=== PATIENT | female | born 1940 | race Caucasian/White ===

== ENCOUNTER 2020-07-21 13:36 | Outpatient (CLI) | payer MEDICARE, SELFPAY ==
--- NOTE | ~2020-07-21 | XR_ITS ---
EXAMINATION: XR lg joint inject/asp w image DATE: 07/21/2020 14:32 INDICATION: Right hip osteoarthritis presenting with right hip pain TECHNIQUE: A time-out was performed to verify the patient's name, date of , and procedure to b e performed. The procedure including the risks, benefits, and alternatives was discussed with the pat ient. Risks discussed included bleeding and infection. The patient understood the risks and agreed to proceed. The skin overlying the right hip joint was prepped and draped in usual sterile fashion. A nesthetic was administered with 1% lidocaine subcutaneously. A 22 G needle was advanced under fluoro scopic guidance into the joint. Injection of 0.6 mL of Omnipaque 240 confirmed intra-articular posit ion of the needle. Subsequently, injectate consisting of 4.5 mL of a 2:1 mixture of 0.25% Sensorcain e: 10 mg/mL Kenalog for a total dosage of 15 mg Kenalog was instilled. Washout of contrast was seen c onfirming intra-articular administration. The needle was removed and the entry site was cleaned and d ressed. There were no immediate complications. Fluoroscopy exposure time was 0.1 minutes. The total number of images was 1. FINDINGS: Real-time fluoroscopy demonstrates the needle in the right hip joint. Patient's pain prior to procedure:04/21. Patient's pain following the procedure: 01/19. IMPRESSION: 1. Right hip injection of local anesthetic and steroid with decrease in the patient's presenting pain . Reviewed, dictated and finalized at location A. IMPRESSION: 1. Right hip injection of local anesthetic and steroid with decrease in the pat ient's presenting pain.
== END 2020-07-21 13:37 | disposition home or self-care (01) ==
LOC: ANHIMG 13:42
PROVIDERS: PCP Family Medicine; Visit Provider Orthopaedic Surgery
DX: M16.11 Unilateral primary osteoarthritis, right hip (principal)
CPT/HCPCS: 20610; 77002; J3301; Q9966

== ENCOUNTER 2021-08-23 16:18 | Outpatient (CLI) | payer MEDICARE, SELFPAY ==
--- NOTE | ~2021-08-23 | DEXA_ITS ---
Bone Density Report Name: Karlee Singh Age: 80 Sex: Female Ethnicity: White Date of : 1940 Indication: postmenopausal; height loss;osteopenia Referring Provider: NADIA MANE Study: Bone densitometry was performed. Exam Date: August 23, 2021 Accession number: [id number] Bone Density: Region BMD T-score Z-score Classification AP Spine (L1, L2) 1.206 2.1 4.6 Normal World Health Organization criteria for BMD impression classify patients as: Normal (T-score at or above -1.0), Osteopenia (T-score between -1.0 and -2.5), or Osteoporosis (T-score at or below -2.5). Clinical Information Provided by Patient: Has used the following medications: Vitamin D, Calcium Patient maximum height was 69 Menopause Age: 54 No regular weight bearing exercise Drinks caffeinated beverages Onset of menses at age 15 Number of children 4 Impression: The patient has normal bone mass. Discussion: LOW RISK OF FRACTURE; BONE DENSITY IS WELL ABOVE THE MINIMUM DESIRABLE LEVEL AND ABOVE AVERAGE FOR AGE AND SEX AT ALL SKELETAL SITES TESTED. This person's bone density is above expected limits for age and sex. This is rarely clinically significant, but should be pursued if there are significant musculoskeletal complaints. The patient should follow a healthful lifestyle (good nutrition with adequate calcium and vitamin D, and appropriate weight-bearing exercise). Follow-Up: Consider repeating this study in 5 years or sooner if there is some new clinical indication. Reported by: ANALI on 08/23/2021 5:03:00 PM. Reviewed, dictated and finalized at location Jw VIDALES
== END 2021-08-23 16:19 | disposition home or self-care (01) ==
LOC: ANHIMG 16:37
PROVIDERS: PCP Family Medicine; Visit Provider Family Medicine
DX: E83.52 Hypercalcemia (principal); M51.37 Other intervertebral disc degeneration, lumbosacral region; M85.80 Other specified disorders of bone density and structure, unspecified site; Z78.0 Asymptomatic menopausal state
CPT/HCPCS: 77080

== ENCOUNTER → 2022-02-14 11:32 | Outpatient (CLI) | payer MEDICARE, SELFPAY ==
--- NOTE | ~2022-02-14 | MM_ITS ---
EXAMINATION: MM screening [facility] BI w katie HISTORY: Screening TECHNIQUE: Craniocaudal and mediolateral oblique 3-D tomosynthesis images were obtained and synthetic 2-D images were generated. CAD analysis was submitted and interpreted. COMPARISON: Comparison to multiple prior studies sequentially, with oldest reviewed study dated 11/2012. BREAST PARENCHYMAL COMPOSITION: There are scattered areas of fibroglandular density. FINDINGS: There is no evidence of suspicious mass, calcification, or architectural distortion to sugg est malignancy in either breast. There has been no suspicious interval change. IMPRESSION: 1. No mammographic evidence of malignancy. 2. Recommend routine screening mammography in one year. BI-RADS Category 1: Negative Reviewed, dictated and finalized at location A.
== END ==
PROVIDERS: Visit Provider Family Medicine
DX: Z12.31 Encounter for screening mammogram for malignant neoplasm of breast (principal)
CPT/HCPCS: 77063; 77067

== ENCOUNTER 2023-02-12 20:35 | Emergency (ER) | payer MEDICARE, SELFPAY ==
--- NOTE | ~2023-02-12 | CT_ITS ---
EXAMINATION: CT brain wo con DATE: 02/12/2023 21:00 INDICATION: Left eye vision loss TECHNIQUE: Computed tomography (CT) of the head was performed without intravenous contrast. Sagittal and coronal reconstructions were performed. The mA was adjusted according to patient size. Iterative reconstruction technique was employed. The dose-length product was 605.33 mGy-cm. COMPARISON: head CT dated 09/12/2017 FINDINGS: No acute intracranial hemorrhage, acute infarction or abnormal extra axial fluid collection. Symmetri c prominence of the sulci consistent with mild age-appropriate diffuse cerebral volume loss. Ventric les are normal and symmetric. No mass/mass effect. Changes of bilateral intraocular lens replacement. The orbits, paranasal sinuses and mastoid air cells are normal. IMPRESSION: 1. Normal aging brain. No acute intracranial process. Reviewed, dictated and finalized at location A.
--- NOTE | ~2023-02-12 | XR_ITS ---
EXAMINATION: XR chest 1V portable INDICATION: Vision loss TECHNIQUE: Portable AP chest at 0935 hours COMPARISON: 12/16/2007 FINDINGS: The lungs are free of acute opacities. No pleural effusion or pneumothorax. The cardiomedia stinal silhouette is normal. IMPRESSION: 1. No acute cardiopulmonary abnormality. Reviewed, dictated and finalized at location L.
[2023-02-12 20:45] VITALS: BP 165/87; RESP 98; TEMP 36.8; O2SAT 99
--- NOTE | 2023-02-12 20:54 | ECG_ITS ---
Measurements Intervals [place] Rate: 88 P: 15 CT: 166 QRS: -2 QRSD: 102 T: 37 QT: 354 QTc: 430 Interpretive Statements SINUS RHYTHM NO PREVIOUS ECG AVAILABLE FOR COMPARISON Electronically Signed On 02-13-2023 15:57:21 CDT by Trudy Zabala M.D.
--- NOTE | 2023-02-12 21:04 | ED.NEUROSD ---
HPI - Neuro Symptoms/Deficit General Chief Complaint: Suspected CVA Stated Complaint: partial loss of vision L eye Time Seen by Provider: 02/12/23 21:04 Source: patient Related Data Home Medications Medication Instructions Recorded Confirmed aspirin 81 mg tablet,delayed 81 mg PO DAILY 03/29/20 08/22/22 release (Adult Low Dose Aspirin) calcium carbonate 600 mg calcium 600 mg PO DAILY 08/08/22 08/22/22 (1,500 mg) tablet (Calcium) docusate sodium 50 mg capsule 50 mg PO DAILY 08/08/22 08/22/22 multivitamin 1 tablet PO DAILY 08/08/22 08/22/22 vitamins A,C,I-odov-egpvce 4,296 1 cap PO BID 08/08/22 08/22/22 mcg-226 mg-90 mg capsule (PreserVision AREDS) Allergies Allergy/AdvReac Type Severity Reaction Status Date / Time No Known Allergies Allergy Verified 08/22/22 09:50 [facility] Past Medical History Medical History Anemia BMI 27.0-27.9,adult BMI 28.0-28.9,adult Disc disease, degenerative, lumbar or lumbosacral Hypercalcemia Mixed hyperlipidemia Osteoarthritis of left hip Osteoarthritis of right thumb Primary osteoarthritis of both knees Screen for colon cancer Screening for breast cancer Type 2 diabetes mellitus without complications Social History Social History Smoking status: Never smoker Tobacco type: cigarettes Alcohol intake: current Course Consultations Consultation #1: Dr. Lopez, stroke team at [facility], recommends tPA and transferre patient to [facility] Date: 02/12/23 Time: 21:58 Consultation #2: DR BOOGIE, ED at [facility] Date: 02/12/23 Time: 21:59 Vital Signs Vital signs: Vital Signs Temperature 36.8 C 02/12/23 20:45 Respiratory Rate 98 H 02/12/23 20:45 Blood Pressure 165/87 H 02/12/23 20:45 Pulse Oximetry 99 02/12/23 20:45 Temperature 36.8 C 02/12/23 20:45 Respiratory Rate 98 H 02/12/23 20:45 Blood Pressure 165/87 H 02/12/23 20:45 Pulse Oximetry 99 02/12/23 20:45 MDM - Neuro Symptoms/Deficit MDM Narrative Medical decision making narrative: Patient came to the emergency room by private car with sudden onset of loss of vision at the lower half of left visual field. While watching TV. She denies any other focal neurodeficit. Physical examination showed that the patient cannot see at the lower half of her left vision. Otherwise no slurred speech, no weakness or numbness no ataxia, no motor or sensory deficit. Differential diagnosis hemianopia secondary to CVA, or brain tumor. EKG on arrival showed normal sinus rhythm at 88 bpm Chest x-ray showed no acute abnormality CT head showed no intracranial hemorrhage or tumor, no acute abnormality. stroke scale is 2 Patient came to us after 1 hour of the beginning of the symptoms, currently on aspirin 81 mg once a day, history of diabetes, and hyperlipidemia, blood pressure on arrival to the ED is 165/87, does not have any contraindication for tPA at this time. Discussed with Dr. Lopez the neurologist at [facility] who agreed with the tPA at this time. Patient understood that she have a stroke, and she believes that tPA will benefit her at this time and she requested the treatment. She understand that tPA treatment has risks including brain hemorrhage which if it ocurs can result in a significant worsening of her stroke symptoms and may increase her ultimate disability and may result in her . tPA can also cause a hemorrhage elsewhere in the body, such as intestines, kidney or other organs. tPA started, Patient to be transferred to [facility]/ED discussed with DR Jamison Lab Data 02/12/23 21:15 02/12/23 21:15 Labs: Lab Results 02/12/23 02/12/23 02/12/23 Range/Units 21:15 21:15 21:15 WBC 6.1 (4.5-10.0) K/mm3 RBC 3.58 L (4.2-5.4) M/mm3 Hgb 10.3 L (12.0-15.0) g/dL Hct 31.9 L (37.0-47.0) %
[2023-02-12 21:13] LABS: Glucose Point of Care 203 mg/dl (65-105)
[2023-02-12 21:26] LABS: Basophils Percent Auto 0.5 % (0.2-1.2); Eosinophils Absolute Auto 0.1 K/mm3 (0-0.3); Hematocrit 31.9 % (37.0-47.0); Hemoglobin 10.3 g/dL (12.0-15.0); Immature Granulocyte Absolute 0.02 K/mm3 (0.00-0.031); Immature Granulocyte Percent A 0.3 % (0-0.5); Lymphocytes Absolute Auto 1.62 K/mm3 (0.9-3.2); Lymphocytes Percent Auto 26.5 % (18.3-44.2); Mean Corpuscular HGB Conc 32.3 g/dl (32-36); Mean Corpuscular Hemoglobin 28.8 pg (26-34); Mean Corpuscular Volume 89.1 fl (80-100); Mean Platelet Volume 9.8 fl (7.4-10.4); Monocytes Absolute Auto 0.8 K/mm3 (0.1-0.6); Monocytes Percent Auto 13.7 % (2.6-8.5); Neutrophils Absolute Auto 3.5 K/mm3 (1.3-6.7); Platelet Count Result 245 k/mm3 (150-375); Red Blood Count 3.58 M/mm3 (4.2-5.4); Red Cell Distribution Width 12.8 % (11.5-14.5); White Blood Count 6.1 K/mm3 (4.5-10.0)
[2023-02-12 21:35] LABS: Alanine Aminotransferase 23 U/L (6-35); Albumin Level 4.4 g/dL (3.5-5.1); Alkaline Phosphatase 97 U/L (38-126); Anion Gap 7 mmol/L (8-16); Aspartate Amino Transferase 31 U/L (14-36); Bilirubin,Total 0.4 mg/dL (0.2-1.3); Blood Urea Nitrogen 25 mg/dL (7-17); Carbon Dioxide 30 mmol/L (22-30); Chloride 101 mmol/L (98-107); Estimated Glomerular Filt Rate 60; Glucose 205 mg/dL (65-110); Potassium 4.2 mmol/L (3.4-5.0); Sodium 138 mmol/L (137-145)
[2023-02-12 21:36] LABS: INR 1.1; Prothrombin Time 13.4 Seconds (11.1-14.7)
[2023-02-12 21:37] LABS: Partial Thromboplastin Time 30.6 SECONDS (22.3-36.8)
[2023-02-12 21:46] LABS: Troponin I < 0.012 ng/mL (0.000-0.034)
[2023-02-12 21:55] LABS: Erythrocyte Sedimentation Rate 79 mm/hr (0-20)
[2023-02-12 22:15] VITALS: BP 150/84; PULSE 90; RESP 18; O2SAT 99
[2023-02-12 22:30] VITALS: BP 155/67; PULSE 94; RESP 18; O2SAT 97
[2023-02-12 23:03] VITALS: BP 145/86; PULSE 92; RESP 22; O2SAT 98
== END 2023-02-12 23:05 | disposition short-term general hospital (02) ==
PROVIDERS: Emergency Provider Emergency Medicine; PCP Family Medicine
DX: I62.9 Nontraumatic intracranial hemorrhage, unspecified (principal); E11.9 Type 2 diabetes mellitus without complications; E78.2 Mixed hyperlipidemia; M16.12 Unilateral primary osteoarthritis, left hip; D64.9 Anemia, unspecified; M19.041 Primary osteoarthritis, right hand; M17.0 Bilateral primary osteoarthritis of knee; Z79.82 Long term (current) use of aspirin; Z79.84 Long term (current) use of oral hypoglycemic drugs
CPT/HCPCS: 36415; 70450; 71045; 80053; 82948; 84484; 85025; 85610; 85652; 85730; 93005; 96374; 99285; J2997

== ENCOUNTER 2023-03-19 12:12 | Outpatient (CLI) | payer MEDICARE, SELFPAY ==
--- NOTE | ~2023-03-19 | MR_ITS ---
EXAMINATION: MR brain/brain stem wo/w con DATE: 03/19/2023 13:11 INDICATION: Cerebrovascular accident. TECHNIQUE: Magnetic resonance imaging (MRI) of the brain and brainstem was performed without and with 16 mL MultiHance intravenous contrast. COMPARISON: Head CT 02/12/2023 FINDINGS: In the left temporal parietal region, there is a 7 mm mass of increased T1-weighted signal intensity and decreased T2*weighted signal intensity. There are scattered areas of nonspecific increa sed T2-weighted signal intensity in the cerebral white matter, which is within normal limits for the patient's age. There is no acute ischemic infarct. The ventricles are normal in size. There are likel y changes of ocular lens replacement surgeries. The mastoid air cells are normal. The paranasal sinus es are clear. IMPRESSION: 1. 7 mm mass in left temporal occipital region, likely a hematoma. Reviewed, dictated and finalized at location A.
== END 2023-03-19 12:13 | disposition home or self-care (01) ==
PROVIDERS: PCP Family Medicine; Visit Provider Physician Assistant
DX: R22.0 Localized swelling, mass and lump, head (principal); Z86.73 Personal history of transient ischemic attack (TIA), and cerebral infarction without residual deficits
CPT/HCPCS: 70553; A9577

== ENCOUNTER 2023-05-08 16:01 | Outpatient (CLI) | payer MEDICARE, SELFPAY ==
--- NOTE | ~2023-05-08 | CT_ITS ---
Non-contrast Head CT History: Left vitreous hemorrhage COMPARISON: 02/12/2023 Technique: Axial non-contrast imaging of the brain was performed. Dose reduction technique was used on this scan by utilizing automated exposure control and iterative reconstruction technique. The dose -length product (DLP) was 605.33 mGy-cm. Findings: There is no evidence of intracranial hemorrhage, mass lesion, or acute infarct. Brain par enchyma appears normal. The ventricles and subarachnoid spaces are normal in size. The calvarium ap pears normal. The visualized paranasal sinuses and mastoid air cells are clear. No gross orbital abn ormality seen. Impression: No significant abnormality seen. Reviewed, dictated and finalized at [facility]. Impression: No significant abnormality seen.
== END 2023-05-08 16:02 | disposition home or self-care (01) ==
PROVIDERS: PCP Family Medicine
DX: H47.012 Ischemic optic neuropathy, left eye (principal); H43.12 Vitreous hemorrhage, left eye
CPT/HCPCS: 70450

== ENCOUNTER 2023-05-10 16:18 | Emergency (ER) | payer MEDICARE, SELFPAY ==
[2023-05-10] VITALS (13 sets, daily range): BP systolic 104–178; BP diastolic 57–82; PULSE 70–89; RESP 14–19; TEMP 36.6; O2SAT 97–99
--- NOTE | ~2023-05-10 | CT_ITS ---
EXAMINATION: CT brain wo con DATE: 05/10/2023 17:37 INDICATION: left sided ENNIS; recent stroke s/p tpa w/ ICH . TECHNIQUE: Computed tomography (CT) of the head was performed without intravenous contrast. The mA wa s adjusted according to patient size. Iterative reconstruction technique was employed. The dose-lengt h product was 681.00 mGy-cm. COMPARISON: 05/08/2023; MR brain 03/19/2023. FINDINGS: No acute intracranial hemorrhage or extra-axial fluid collection. No hydrocephalus, mass, or herniation. No acute ischemic infarct. Unremarkable dural venous sinus attenuation. No acute osseous abnormality. Tiny retention cysts/polyps in the bilateral maxillary sinuses, the remaining aerated spaces are genna r. Mild atrophy and chronic white matter change. Small focus of encephalomalacia in the left temporal oc cipital lobe in the region of prior hemorrhage. Atherosclerotic intracranial calcification. Bilateral lens replacements. IMPRESSION: No acute intracranial process. Reviewed, dictated and finalized at location K.
--- NOTE | 2023-05-10 17:01 | ED.HA ---
HPI - Headache General Chief Complaint: Headache Stated Complaint: headache, HTN Time Seen by Provider: 05/10/23 16:30 History of Present Illness HPI Narrative: Patient is an 82-year-old female with a history of hypertension, diabetes, recent stroke presenting with headache. Patient states that she had a stroke in February that was characterized by left-sided visual loss. She was treated with tPA and transferred to [facility]. States that she then developed an intracranial hemorrhage. States that since this time she has had persistent visual loss in her left eye. States over the last week she has had tearing in her left eye as well as intermittent discomfort and pain around the site. She was seen by neuro-ophthalmology on Sunday and they felt it was related to dry eyes. She was also diagnosed with a vitreous hemorrhage at this time. She was advised to stop taking her Plavix. Unfortunately, she continues to have tearing and pain in this left eye so she came in for evaluation. She denies any new neuro deficits. Denies further complaints. Related Data Home Medications Medication Instructions Recorded Confirmed calcium carbonate 600 mg calcium 600 mg PO DAILY 08/08/22 02/20/23 (1,500 mg) tablet (Calcium) docusate sodium 50 mg capsule 50 mg PO DAILY 08/08/22 02/20/23 multivitamin 1 tablet PO DAILY 08/08/22 02/20/23 vitamins A,C,E-fsmy-fieuag 4,296 1 cap PO BID 08/08/22 02/20/23 mcg-226 mg-90 mg capsule (PreserVision AREDS) atorvastatin 40 mg tablet 40 mg PO DAILY 02/20/23 02/20/23 clopidogrel 75 mg tablet 75 mg PO DAILY 02/20/23 02/20/23 hydralazine 25 mg tablet 25 mg PO ONCE PRN 02/20/23 02/20/23 Allergies Allergy/AdvReac Type Severity Reaction Status Date / Time No Known Allergies Allergy Verified 05/10/23 16:35 Review of Systems Review of Systems: All systems reviewed & are unremarkable except as noted in HPI and below PMFSH Past Medical History Medical History Anemia BMI 26.0-26.9,adult BMI 27.0-27.9,adult BMI 28.0-28.9,adult Disc disease, degenerative, lumbar or lumbosacral Hemianopia of left eye Hypercalcemia Mixed hyperlipidemia Osteoarthritis of left hip Osteoarthritis of right thumb Primary osteoarthritis of both knees Screen for colon cancer Screening for breast cancer Type 2 diabetes mellitus without complications Social History Social History Smoking status: Never smoker Tobacco type: cigarettes Alcohol intake: current Exam Narrative: GENERAL: Well-appearing, well-nourished, and in no acute distress. HEAD: Normocephalic, atraumatic. EYES: PERRLA and EOMI. L conjunctiva is injected, pupil is 3mm, minimally reactive; R pupil is 2mm and reactive ENT: Nares clear, no rhinorrhea or epistaxis. Mucous membranes moist. NECK: Supple. CHEST: No respiratory distress. HEART: Regular rate and rhythm. ABDOMEN: Soft, nontender, nondistended EXTREMITIES: Normal range of motion. No edema. SKIN: Warm, dry, no rash. NEURO: No focal deficits. Alert and oriented x3. +L sided hemianopia unchanged from baseline PSYCH: Normal mood and affect. Course Vital Signs Vital signs: Vital Signs Temperature 97.8 F 05/10/23 16:20 Pulse Rate 88 05/10/23 16:20 Respiratory Rate 18 05/10/23 16:20 Blood Pressure 172/82 H 05/10/23 16:20 Pulse Oximetry 99 05/10/23 16:20 Oxygen Delivery Room Air 05/10/23 16:20 Temperature 97.8 F 05/10/23 16:20 Pulse Rate 70 05/10/23 21:03 Respiratory Rate 15 05/10/23 21:03 Blood Pressure 155/71 H 05/10/23 20:16 Pulse Oximetry 98 05/10/23 21:03 Oxygen Delivery Room Air 05/10/23 16:20 MDM - Headache MDM Narrative Medical decision making narrative: Patient is an 82-year-old female presenting with left eye pain and tearing. Patient is hypertensive, his vitals are within normal limits. Exam remarkable for the above. Plan
[2023-05-10 17:26] LABS: Basophils Absolute Auto 0.1 K/mm3 (0.0-0.1); Basophils Percent Auto 0.6 % (0.2-1.2); Eosinophils Absolute Auto 0.1 K/mm3 (0-0.3); Eosinophils Percent Auto 1.1 % (0-4.4); Hemoglobin 12.4 g/dL (12.0-15.0); Immature Granulocyte Absolute 0.02 K/mm3 (0.00-0.031); Immature Granulocyte Percent A 0.3 % (0-0.5); Lymphocytes Absolute Auto 1.88 K/mm3 (0.9-3.2); Lymphocytes Percent Auto 23.8 % (18.3-44.2); Mean Corpuscular HGB Conc 32.6 g/dl (32-36); Mean Corpuscular Hemoglobin 28.8 pg (26-34); Mean Corpuscular Volume 88.2 fl (80-100); Mean Platelet Volume 9.7 fl (7.4-10.4); Monocytes Absolute Auto 0.7 K/mm3 (0.1-0.6); Monocytes Percent Auto 8.2 % (2.6-8.5); Neutrophils Absolute Auto 5.2 K/mm3 (1.3-6.7); Platelet Count Result 266 k/mm3 (150-375); Red Blood Count 4.31 M/mm3 (4.2-5.4); Red Cell Distribution Width 13.2 % (11.5-14.5); White Blood Count 7.9 K/mm3 (4.5-10.0)
[2023-05-10] MEDS: SODIUM CHLORIDE 0.9% IV 1,000 ML 999 ML IV CONT (17:28)
[2023-05-10] MEDS: FLUORESCEIN SOD 1 MG/STRIP LEFT EYE (17:28)
[2023-05-10 17:36] LABS: Alanine Aminotransferase 37 U/L (6-35); Albumin Level 4.6 g/dL (3.5-5.1); Alkaline Phosphatase 100 U/L (38-126); Anion Gap 7 mmol/L (8-16); Aspartate Amino Transferase 36 U/L (14-36); Bilirubin,Total 0.5 mg/dL (0.2-1.3); Blood Urea Nitrogen 21 mg/dL (7-17); Calcium 9.9 mg/dL (8.4-10.2); Carbon Dioxide 28 mmol/L (22-30); Chloride 101 mmol/L (98-107); Estimated CRCL calculation 43 ml/min; Estimated Glomerular Filt Rate 60; Glucose 137 mg/dL (65-110); Potassium 4.2 mmol/L (3.4-5.0); Sodium 136 mmol/L (137-145)
[2023-05-10] MEDS: MORPHINE SULFATE (*CRX) 2 MG/ML INJ IV PUSH (18:01)
[2023-05-10] MEDS: LATANOPROST 0.005% OP SOLN 2.5 ML BTL 1 DROP LEFT EYE (20:19)
[2023-05-10 20:22] LABS: Glucose Point of Care 149 mg/dl (65-105)
[2023-05-10] MEDS: BRIMONIDINE TARTRATE 0.15% 5 ML OPHTH SOLN 1 DROP LEFT EYE (20:59)
[2023-05-10] MEDS: acetaZOLAMIDE SODIUM FOR INJ 500 MG VIAL IV PUSH (21:51)
== END 2023-05-10 21:55 | disposition short-term general hospital (02) ==
PROVIDERS: Emergency Provider Emergency Medicine; PCP Family Medicine
DX: H57.12 Ocular pain, left eye (principal); H40.052 Ocular hypertension, left eye; I10 Essential (primary) hypertension; E11.9 Type 2 diabetes mellitus without complications; E78.2 Mixed hyperlipidemia; M16.12 Unilateral primary osteoarthritis, left hip; M17.0 Bilateral primary osteoarthritis of knee; Z86.2 Personal history of diseases of the blood and blood-forming organs and certain disorders involving the immune mechanism; Z79.84 Long term (current) use of oral hypoglycemic drugs
CPT/HCPCS: 36415; 70450; 80053; 82948; 85025; 96361; 96374; 96375; 99285; A9270; J1120; J2270; J7030

== ENCOUNTER 2024-04-21 14:29 | Outpatient (CLI) | payer MEDICARE, SELFPAY ==
--- NOTE | 2024-04-21 14:39 | ECHO_ITS ---
Patient Info Name: Karlee Singh Age: 83 years : 1940 Gender: Female Ht: 68 in Wt: 175 lbs BSA: 1.97 m2 HR: 76 bpm BP: 175 / 96 mmHg Heart Rhythm: Sinus Rhythm Technical Quality: Fair Exam Date: 04/21/2024 2:48 PM Exam Location: Echo Lab Patient Status: Outpatient Admit Date: 04/21/2024 Staff Ordering Physician: Ely Huffman PAC Mon[place] Mason: Swathi Dunn RDCS Attending Provider: Ely Huffman PAC Referring Physician: Nathanael ENCINAS; Exam Type: CA echo doppler color flow Study Info Indications R01.1 - Cardiac murmur, unspecified Complete two-dimensional, color flow and Doppler transthoracic echocardiogram is performed. Summary 1. Complete two-dimensional, color flow and Doppler transthoracic echocardiogram is performed. 2. Left ventricular chamber dimension is normal. 3. Left ventricular systolic function is hyperdynamic, estimated at >70%. 4. The left ventricular diastolic function is grade I diastolic dysfunction. 5. E/e' 19 is elevated. 6. Left atrial chamber dimension is moderately enlarged. 7. There is moderate aortic valve sclerosis. 8. The mitral valve has severe calcified annulus. 9. There is mild mitral valve regurgitation. 10. There is trace tricuspid valve regurgitation. 11. No pulmonary hypertension, estimated pulmonary arterial systolic pressure is 34 mmHg. 12. There is mild pulmonic regurgitation. Left Ventricle E/e' 19 is elevated. Left ventricular chamber dimension is normal. Left ventricular systolic function is hyperdynamic, estimated at >70%. The left ventricular diastolic function is grade I diastolic dysfunction. Right Ventricle Right ventricular chamber dimension is normal. Right ventricular systolic function is normal. Left Atria Left atrial chamber dimension is moderately enlarged. Right Atria Right atrial chamber dimension is normal. Aortic Valve The aortic valve is trileaflet. There is moderate aortic valve sclerosis. There is no aortic valve stenosis. There is no aortic valve regurgitation. Pulmonic Valve There is mild pulmonic regurgitation. Mitral Valve The mitral valve has severe calcified annulus. There is no mitral valve stenosis. There is mild mitral valve regurgitation. Tricuspid Valve There is trace tricuspid valve regurgitation. No pulmonary hypertension, estimated pulmonary arterial systolic pressure is 34 mmHg. Pericardium/Pleural There is no pericardial effusion. Inferior Vena Cava Normal inferior vena cava with >50% collapse upon inspiration consistent with normal right atrial pressure, 5 mmHg. Aorta The aortic root size at the sinus of Valsalva is normal. Left Ventricular Outflow Tract Name Value Normal LVOT 2D LVOT Diameter 2.0 cm LVOT Doppler LVOT Peak Gradient 4 mmHg LVOT Mean Gradient 2 mmHg LVOT VTI 24 cm LVOT VTI/AV VTI Ratio 0.7 LVOT Stroke Volume 77 ml LVOT CO 5.6 l/min LVOT CI 2.9 l/min/m2 Pulmonic Valve Name
== END 2024-04-21 14:30 | disposition home or self-care (01) ==
PROVIDERS: PCP Family Medicine; Visit Provider Physician Assistant Medical
DX: R01.1 Cardiac murmur, unspecified (principal); I34.0 Nonrheumatic mitral (valve) insufficiency; I35.1 Nonrheumatic aortic (valve) insufficiency
CPT/HCPCS: 93306

== ENCOUNTER 2024-06-06 10:47 | Emergency (ER) | payer MEDICARE, SELFPAY ==
[2024-06-06 10:54] VITALS: BP 139/76; PULSE 83; RESP 16; TEMP 36.6; O2SAT 100
--- NOTE | 2024-06-06 10:55 | ED.SKABFB ---
HPI - Skin/Abscess/Foreign Bdy General Chief complaint: Skin/Abscess/Foreign Body Stated complaint: poss cellulitus on arms Time Seen by Provider: 06/06/24 10:57 Source: patient, RN notes reviewed and old records reviewed Mode of arrival: ambulatory Limitations: no limitations History of Present Illness HPI narrative: 83-year-old female presents to the [facility] with concerns for redness to bilateral arms, area to the left jaw area, has some spots on her legs. Describes the red patches as very itchy. No increased warmth. Patient states she takes Benadryl and applies hydrocortisone cream and the symptoms get better. Patient denies any new creams ointments loosens or detergents. Symptoms have been going on since Sunday, 4 days. Onset (ago): day(s) (4) Related Data Home Medications Medication Instructions Recorded Confirmed calcium carbonate (Calcium 600) 600 mg PO DAILY 08/08/22 03/24/24 docusate sodium 50 mg capsule 50 mg PO DAILY 08/08/22 03/24/24 multivitamin 1 tablet PO DAILY 08/08/22 03/24/24 vitamins A,C,K-bfnu-bkzkle 4,296 1 cap PO BID 08/08/22 03/24/24 mcg-226 mg-90 mg capsule (PreserVision AREDS) aspirin 81 mg tablet,delayed 81 mg PO DAILY 09/06/23 03/24/24 release (Adult Aspirin Regimen) dorzolamide 2 % eye drops 1 drp LEFT EYE BID 09/06/23 03/24/24 cholecalciferol (vitamin D3) 10 10 mcg PO DAILY 01/17/24 03/24/24 mcg (400 unit) capsule timolol 0.5 % eye drops 1 drp LEFT EYE Q12H 01/17/24 03/24/24 Allergies Allergy/AdvReac Type Severity Reaction Status Date / Time No Known Allergies Allergy Verified 05/19/24 08:06 Review of Systems Review of Systems: All systems reviewed & are unremarkable except as noted in HPI and below Constitutional: Constitutional: Reports no additional constitutional complaints Eyes: Eyes: Reports no additional eye complaints ENT: Reports system reviewed and no additional complaints, except as documented Cardiovascular: Cardiovascular: Reports no additional cardiovascular complaints, Denies chest pain and Denies dyspnea Respiratory: Respiratory: Reports no additional respiratory complaints, Denies chest congestion, Denies cough and Denies dyspnea Gastrointestinal: Gastrointestinal: Reports no additional gastrointestinal complaints, Denies abdominal pain, Denies nausea and Denies vomiting Musculoskeletal: Musculoskeletal: Reports no additional musculoskeletal complaints Integumentary/Breasts: Skin/Breast: Reports as per HPI and Reports rash Neurologic: Reports system reviewed and no additional complaints, except as documented Psychiatric: Psychiatric: Reports no additional psychiatric complaints Allergic/Immunologic: Allergic/Immunologic: Reports no additional allergic/immunologic complaints PMFSH Past Medical History Medical History Anemia Bunion, left foot Disc disease, degenerative, lumbar or lumbosacral Hemianopia of left eye Hypercalcemia Mixed hyperlipidemia 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 Post-menopausal Primary osteoarthritis of both knees Screen for colon cancer Screening for breast cancer Screening for osteoporosis Type 2 diabetes mellitus without complications Wrist fracture, left 2021 Surgical History Surgical History History of knee replacement procedure of left knee procedure in 09/2019 [facility] History of knee replacement procedure of right knee procedure in 04/2019 at [facility] History of left hip replacement 2019 History of lumbar fusion 1997 History of right hip replacement 01/12/2021 History of surgical procedure on eye proper using laser Previous back surgery in 1979 Family History Family History Father Heart disease Acute myocardial infarction Mother Cancer
== END 2024-06-06 11:14 | disposition home or self-care (01) ==
PROVIDERS: Emergency Provider Nurse Practitioner; PCP Family Medicine
DX: L23.9 Allergic contact dermatitis, unspecified cause (principal); Z87.891 Personal history of nicotine dependence; E78.2 Mixed hyperlipidemia; M16.12 Unilateral primary osteoarthritis, left hip; M19.041 Primary osteoarthritis, right hand; M17.0 Bilateral primary osteoarthritis of knee; E11.9 Type 2 diabetes mellitus without complications; Z96.653 Presence of artificial knee joint, bilateral; Z96.643 Presence of artificial hip joint, bilateral; Z79.82 Long term (current) use of aspirin
CPT/HCPCS: 99213; G0463

== ENCOUNTER 2024-07-18 11:49 | Outpatient (CLI) | payer MEDICARE, SELFPAY ==
--- NOTE | ~2024-07-18 | DEXA_ITS ---
Bone Density Report Name: SANTOSH HORNE Age: 83 Sex: Female Ethnicity: White Date of : 1940 Indication: postmenopausal; screening for osteoporosis; height loss; prior fracture; Referring Provider: ARTI, TERRELL Zepeda Study: Bone densitometry was performed. Exam Date: July 18, 2024 Accession number: [id number] Bone Density: Region BMD T-score Z-score Classification AP Spine(L2, L3) 0.884 -1.6 1.3 Osteopenia World Health Organization criteria for BMD impression classify patients as: Normal (T-score at or above -1.0), Osteopenia (T-score between -1.0 and -2.5), or Osteoporosis (T-score at or below -2.5). Clinical Information Provided by Patient: Have had a previous hip or vertebral fracture Has had a low trauma fracture Has used the following medications: Vitamin D, Calcium Patient maximum height was 69.0 Menopause Age: 55 No regular weight bearing exercise Drinks caffeinated beverages Onset of menses at age 15 Number of children 4 Impression: The patient has low bone mass, based on the Total Spine T-score. The patient has risk factors, including: previous fracture. Discussion: INCREASED RISK OF FRACTURE DUE TO HISTORY OF FRACTURE. The patient's previous fracture puts the patient at high risk of a future fracture. In untreated patients, the risk of osteoporotic fracture increases approximately two-fold for each 1.0 SD decrease in T-score. Low bone density is not the only risk factor for fracture; also consider factors such as patient's age, frailty or poor health, risk of falling, risk of injury, previous osteoporotic fracture, family history of osteoporosis, cigarette smoking, low body weight, etc. Not everyone with a low trauma fracture has osteoporosis; osteomalacia and other metabolic bone disorders should also be considered. Patients who have osteoporosis should be evaluated for specific diseases and conditions (secondary causes) that may cause or contribute to bone loss and fracture risk. National Osteoporosis Foundation (NOF) recommends pharmacologic intervention for patients with a prior hip or vertebral fracture regardless of BMD T-score. The patient should follow a healthful lifestyle (good nutrition with adequate calcium and vitamin D, and appropriate weight-bearing exercise). Follow-Up: Consider a repeat BMD and Vertebral Fracture Assessment (VFA) exam in 2 years or sooner if medically necessary, to reassess this patient's status. Reported by: FRANCISCO on 07/29/2024 11:44:00 AM. Reviewed, dictated and finalized at location Jw VIDALES
--- NOTE | ~2024-07-18 | MM_ITS ---
EXAMINATION: MM screening douglas BI w katie HISTORY: Screening TECHNIQUE: Craniocaudal and mediolateral oblique 3-D tomosynthesis images were obtained and synthetic 2-D images were generated. CAD analysis was submitted and interpreted. COMPARISON: Comparison to multiple prior studies sequentially, with oldest reviewed study dated 01/19. BREAST PARENCHYMAL COMPOSITION: Not dense: There are scattered areas of fibroglandular density. FINDINGS: There is no evidence of suspicious mass, calcification, or architectural distortion to sugg est malignancy in either breast. There has been no suspicious interval change. IMPRESSION: 1. No mammographic evidence of malignancy. 2. Recommend routine screening mammography in one year. BI-RADS Category 1: Negative Reviewed, dictated and finalized at location B.
== END 2024-07-18 11:50 | disposition home or self-care (01) ==
PROVIDERS: PCP Family Medicine; Visit Provider Physician Assistant
DX: Z12.31 Encounter for screening mammogram for malignant neoplasm of breast (principal); Z78.0 Asymptomatic menopausal state; M85.88 Other specified disorders of bone density and structure, other site
CPT/HCPCS: 77063; 77067; 77080

== ENCOUNTER 2025-02-20 10:14 | Emergency (ER) | payer MEDICARE, SELFPAY ==
--- NOTE | 2025-02-20 10:18 | ED.SKABFB ---
HPI - Skin/Abscess/Foreign Bdy General Chief complaint: Skin/Abscess/Foreign Body Stated complaint: Rash Time Seen by Provider: 02/20/25 10:34 Source: patient, RN notes reviewed and old records reviewed Mode of arrival: ambulatory Limitations: no limitations History of Present Illness HPI narrative: 84-year-old female presents to the [facility] with complaints of a rash. Has multiple red raised bumps to the abdomen, right leg. Onset (ago): day(s) (3-4) Treatments prior to arrival: none Related Data Home Medications ?Medication ?Instructions ?Recorded ?Confirmed ?Last Taken ?Type multivitamin 1 tablet PO DAILY 08/08/22 08/26/24 Unknown History vitamins A,C,[id number]-[id number] 4,296 1 cap PO BID 08/08/22 08/26/24 Unknown History mcg-226 mg-90 mg capsule (PreserVision AREDS) aspirin 81 mg tablet,delayed 81 mg PO DAILY 09/06/23 08/26/24 Unknown History release (Adult Aspirin Regimen) dorzolamide 2 % eye drops 1 drp LEFT EYE BID 09/06/23 08/26/24 Unknown History timolol 0.5 % eye drops 1 drp LEFT EYE Q12H 01/17/24 08/26/24 Unknown History cholecalciferol (vitamin D3) 25 25 mcg PO DAILY 08/26/24 08/26/24 Unknown History mcg (1,000 unit) capsule latanoprost 0.005 % eye drops 1 drp EACH EYE DAILY 08/26/24 08/26/24 Unknown History Allergies Allergy/AdvReac Type Severity Reaction Status Date / Time No Known Allergies Allergy Verified 05/19/24 08:06 Review of Systems Review of Systems: All systems reviewed & are unremarkable except as noted in HPI and below Constitutional: Constitutional: Reports no additional constitutional complaints ENT: Reports system reviewed and no additional complaints, except as documented Cardiovascular: Cardiovascular: Reports no additional cardiovascular complaints, Denies chest pain and Denies dyspnea Respiratory: Respiratory: Reports no additional respiratory complaints, Denies chest congestion, Denies cough and Denies dyspnea Musculoskeletal: Musculoskeletal: Reports no additional musculoskeletal complaints Integumentary/Breasts: Skin/Breast: Reports as per HPI [facility] Past Medical History Medical History Anemia Bunion, left foot Disc disease, degenerative, lumbar or lumbosacral Hemianopia of left eye Hypercalcemia Mixed hyperlipidemia 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 Post-menopausal Primary osteoarthritis of both knees Screen for colon cancer Screening for breast cancer Screening for osteoporosis Type 2 diabetes mellitus without complications Wrist fracture, left 2021 Surgical History Surgical History History of knee replacement procedure of left knee procedure in 09[facility] History of knee replacement procedure of right knee procedure in 04/2019 [facility] History of left hip replacement 2019 History of lumbar fusion 1997 History of right hip replacement 01/12/2021 History of surgical procedure on eye proper using laser Previous back surgery in 1978 Family History Family History Father Heart disease Acute myocardial infarction Mother Cancer Sibling Cancer Heart disease Aneurysm Granular cell myoblastoma Sibling No problems noted. 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 There is no relevant family history pertinent to the patient complaint. Exam Const: General: cooperative, healthy appearing, comfortable, no acute distress, well developed, alert and well nourished Nutritional Appearance: well nourished Orientation/consciousness: patient oriented x3 Limitations: no limitations HENMT: Head: normal to inspection Eyes: General: appearance normal, both eyes and all related structures Alignment and Position: alignment normal Neck: Neck: normal visual inspection, full ROM, no lymphadenopathy and no meningeal signs Chest: Chest palpation & inspection: normal inspection of the chest Resp: Effort & Inspection: normal respiratory effort and able to speak in complete sentences Cardio: Rate: regular rate Skin: General skin exam: normal color and no rashes or lesions noted Rashes: rashes noted Other: Multiple raised itchy bumps to the lower abdomen and right anterior leg. Size ranging from a dime to a quarter, no fluctuance, no increased warmth, pink in color Neuro: General: patient oriented x3, gait normal, moves all extremities and no meningeal signs Cognition (Neuro): normal cognition Speech: normal speech Gait exam (Neuro): Normal gait present Extrem: General: normal to inspection, full ROM, capillary refill normal and normal gait Psych: Appearance: grossly normal and well kempt Mental Status: mental status grossly normal Speech and movement: Normal speech and movement present and Clear speech present Affect: normal affect Attitude: cooperative Course Course Level of Care: Express Care Visit Vital Signs Vital signs: Vital Signs Temperature 97.8 F 02/20/25 10:21 Pulse Rate 62 02/20/25 10:21 Respiratory Rate 16 02/20/25 10:21 Blood Pressure 158/54 H 02/20/25 10:21 Pulse Oximetry 98 02/20/25 10:21 Oxygen Delivery Room Air 02/20/25 10:21 Temperature 97.8 F 02/20/25 10:21 Pulse Rate 62 02/20/25 10:21 Respiratory Rate 16 02/20/25 10:21 Blood Pressure 158/54 H 02/20/25 10:21 Pulse Oximetry 98 02/20/25 10:21 Oxygen Delivery Room Air 02/20/25 10:21 Reviewed MDM - Skin/Abscess/Foreign Bdy MDM Narrative Medical decision making narrative: Patient sitting in exam room. Nontoxic, vitals stable except blood pressure. Patient is being treated by primary care provider for blood pressure issue Patient presents with multiple red bumps most likely insect bites. No signs vesicular lesions Patient appropriate for outpatient treatment with close follow-up Discharge instructions reviewed with patient, as well as provided in writing per nursing staff. The instructions also include specific and strict return/GO TO THE ER as well as f/u information. All questions have been answered, and the patient deny any further questions with discharge and discharge plan. Some parts of this dictation were generated by voice recognition software and may contain typographical and/or grammatical inaccuracies. Differential Diagnosis Differential diagnosis: Likely abscess of skin or subcutaneous tissue, urticaria, herpes zoster, cellulitis, eczema and insect bites Critical Care Time Critical Care Time Critical Care Time: No Discharge Plan Discharge Clinical Impression: Urticaria, Insect bites Patient Disposition: Home Condition: Stable Instructions: Antibiotic Form, Urticaria (ED), Insect Bite or Sting (ED) Additional Instructions: The most important part of your care is follow up with Primary care provider. Today your blood pressure was 158/54. Take Benadryl 25 mg every 8 hours for itching Take Zyrtec every day Take Pepcid 20mg daily for 7 days Apply the steroid cream 2 to 3 times a day Avoid hot showers, Take cool showers. Hot showers will make rashes worse Apply cool compresses every 2-3 hours for 15 minutes Go to the ER for new or worsening symptoms such as shortness of breath. Patient Language: Cook Islander Prescriptions: New triamcinolone acetonide 0.1 % cream 1 applic topical BID Qty: 30 0RF No Action aspirin [Adult Aspirin Regimen] 81 mg tablet,delayed release (DR/EC) 81 mg PO DAILY dorzolamide 2 % drops 1 drp LEFT EYE BID timolol 0.5 % drops 1 drp LEFT EYE Q12H multivitamin Tablet 1 tablet PO DAILY PreserVision AREDS 14,320-226-200 [id number] capsule 1 cap PO BID latanoprost 0.005 % drops 1 drp EACH EYE DAILY cholecalciferol (vitamin D3) 25 mcg (1,000 unit) capsule 25 mcg PO DAILY calcium carbonate-vitamin D3 [Os-Leo 500 + D3] 500 mg-5 mcg (200 unit) tablet 1 tablet PO BID Qty: 0 0RF tizanidine 4 mg tablet 4 mg PO BID PRN (Reason: muscle spasticity) Qty: 45 1RF metformin 500 mg tablet extended release 24 hr See Rx Instructions .ROUTE .COMPLEX Qty: 180 3RF Dose Instruction: TAKE 2 TABLETS BY MOUTH IN THE EVENING Rx Instructions: TAKE 2 TABLETS BY MOUTH IN THE EVENING atorvastatin 40 mg tablet See Rx Instructions .ROUTE .COMPLEX Qty: 90 3RF Dose Instruction: TAKE 1 TABLET BY MOUTH DAILY Rx Instructions: TAKE 1 TABLET BY MOUTH DAILY benazepril 5 mg tablet 5 mg PO DAILY Qty: 90 1RF Follow-up/Referrals: Zana Flynn MD [Primary Care Provider] - 2 Weeks Time of Disposition: 10:42
[2025-02-20 10:21] VITALS: BP 158/54; PULSE 62; RESP 16; TEMP 36.6; O2SAT 98
--- OUTSIDE RECORDS SUMMARY | 2025-02-20 10:48 | XMS_ITS | Data Portability ---
Author Organization [place] [facility], Main Office Address [address] [place] [address] Care Team Providers Care Fisher Trammel Net Name Role Phone NADIA MANE Primary Care Provider [phone] NADIA MANE Referring Provider Assessment Encounter Date Assessment Date Assessment LastModified by Organization Details LastModified Time 02/22/2023 02/22/2023 Patient is statu s post total knee arthroplasties right left in 2019 and total hip arthroplasties and 20 and 21. Overall she is doing fine x-rays look excellent no evidence of loosening or change. She has little bit of pain in the right knee intermittently she says once or twice a month. She has got good motion strength and seemingly quite happy she lives alone and is doing well. I told her a year to a like her to stop by and will take x-rays of her prosthesis to make sure there was no evidence of loosening or change if she develops any symptoms she will call discussed. [email or web address] Not available 02/22/2023 12:17:15 Plan of Treatment Reminders Order Date Submit Date Provider Last Modified By Organization Details Last Modified Time Details Appointments None record ed. Lab None record ed. Referral None record ed. Procedures None record ed. Surgeries None record ed. Imaging XR, hip + pelvis , unilat eral, 2 or 3 view 023 02/23/20 23 [email or web address] [facility] [place], [address], [place], [address], 3 12:17:34 XR, knee, 3 view 023 02/23/20 23 [email or web address] [facility] [place], [address], [place], [address], 12:18:08 Medication Orders None record ed. Patient TargetsNo targets recorded. Patient InstructionsNo instructions recorded. Reason for Referral None Reported. Results Created Date Observation Date Name Description Value Unit Range Abnormal Flag Note LastModifiedBy Organization Detail LastModifiedTime 02/23/20 21 XR, hip, unila teral No observ ation record ed. [id number] [facility] [place] [address], [place], [address], 01/10/2023 01:18:34 01/05/20 22 XR, wrist , 3 or more view No observ ation record ed. [id number] [facility] [place] [address], [place], [address], 01/10/2023 01:18:34 02/24/20 22 XR, knee No observ ation record ed. [id number] [facility] [place] [address], [place], [address], 01/10/2023 01:18:34 02/24/20 22 XR, hip + pelvi s, bilat eral No observ ation record ed. [id number] [facility] [place] [address], [place], [address], 01/10/2023 01:18:34 02/23/20 23 XR, knee, 3 view No observ ation record ed. [email or web address] [facility] [place] [address], [place], [address], 02/22/2023 12:18:07 02/23/20 23 XR, hip + pelvi s, unila teral , 2 or 3 view No observ ation record ed. [email or web address] [facility] [place] [address], [place], [address], 02/22/2023 12:17:33 Result Notes None recorded. Problems Name Problem SNOMED Code Status Onset Date Resolution Date Notes Provider Name and Address Organization Details Recorded Time Arthritis of left hip 2830796264258 105 Active 2019 Not Available [facility] 3 00:59:44 Disorder of trunk 284389878 Active Not Available [facility] 3 00:59:44 Radiothera py follow-up 671701679 Active Not Available [facility] 3 00:59:44 Osteoarthr itis of knee 917037659 Active Not Available [facility] 3 00:59:44 Closed Colles' fracture 305188077 Active Not Available [facility] 3 00:59:44 Knee pain Active Not Available [facility] 3 00:59:44 Osteoarthr osis of the carpometac arpal joint of the thumb 27125636 Active 2021 Not Available [facility] 3 00:59:44 Osteoarthr itis 637315969 Active Not Available [facility] 3 00:59:44 Hip pain 53588061 Active Not Available [facility] 3 00:59:44 Fracture of forearm 25710709 Active Not Available [facility] 3 00:59:44 Problem Notes None recorded. Procedures Surgical History Date Name Laterality Status Provider Name and Address Organization Details Recorded Time Knee Replacement completed Not Available [facility] 01/10/2023 00:48:56 Lumbar Spine Surgery completed Not Available [facility] 01/10/2023 00:48:56 Imaging Results Imaging Date Name Status LastModified by Organiz ation Details LastModified Time 02/23/2022 XR, knee completed [id number] [facility] [place] [address], [place], [address], 01/10/2023 01:18:34 02/23/2022 XR, hip + pelvis, bilateral completed [id number] [facility] [place] [address], [place], [address], 01/10/2023 01:18:34 02/22/2021 XR, hip, unilateral completed [id number] [facility] [place] [address], [place], [address], 01/10/2023 01:18:34 01/05/2022 XR, wrist, 3 or more view completed [id number] [facility] [place] [address], [place], [address], 01/10/2023 01:18:34 02/22/2023 XR, knee, 3 view completed [email or web address] [facility] [place] [address], [place], [address], 02/22/2023 12:18:07 02/22/2023 XR, hip + pelvis, unilateral, 2 or 3 view completed [email or web address] [facility] [place] [address], [place], [address], 02/22/2023 12:17:33 Procedure Notes None recorded. Medical Equipment None Reported. Allergies No known drug allergies Medications Name Sig Start Date Stop Date Status Note LastModified by Organization Details LastModified Time celecoxib 200 mg capsule TAKE 1 CAPSULE BY MOUTH DAILY active Not Available Not Available No t Available amoxicillin 500 mg capsule TAKE 4 TABLET BY MOUTH 1 HOUR PRIOR TO APPT 02/22 completed Not Available Not Available Not Available atorvastati n 40 mg tablet TAKE 1 TABLET BY MOUTH AT BEDTIME active Not Available Not Available No t Available prednisone 10 mg tablet 02/22 completed Not Available Not Available Not Available benazepril 5 mg tablet active Not Available Not Available Not Available tramadol 37.5 mg-acetamin ophen 325 mg tablet TAKE 1 OR 2 TABLETS BY MOUTH EVERY 8 HOURS active Not Available Not Available No t Available acetazolami de ER 500 mg capsule,ext ended release TAKE 1 CAPSULE BY MOUTH 2 TIMES A DAY active Not Available Not Available No t Available tizanidine 4 mg tablet TK ONE T PO EVERY EVENING PRN 02/22 completed Not Available Not Available Not Available chlorzoxazo ne 500 mg tablet 02/22 completed Not Available Not Available Not Available valacyclovi r 1 gram tablet TAKE 1 TABLET BY MOUTH EVERY 8 HOURS 02/22 completed Not Available Not Available Not Available hydrocodone 5 mg-acetamin ophen 325 mg tablet 01/05 completed Not Available Not Available Not Available meloxicam 15 mg tablet 07/30 completed Not Available Not Available Not Available bupivacaine HCl 0.5 % (5 mg/mL) injection solution Take 20 mg by injection route. 02/22 completed Not Available Not Available Not Available hydralazine 25 mg tablet active Not Available Not Available Not Available clopidogrel 75 mg tablet TAKE 1 TABLET BY MOUTH EVERY DAY active Not Available Not Available No t Available sulfamethox azole 800 mg-trimetho prim 160 mg tablet 07/30 completed Not Available Not Available Not Available tramadol 50 mg tablet Take 1 tablet every 6-8 hours by oral route as needed. active Not Available Not Available No t Available amoxicillin 500 mg tablet TAKE FOUR TS PO 1 HOUR B DAPP active Not Available Not Available No t Available simvastatin 40 mg tablet 02/22 completed Not Available Not Available Not Available ketorolac 0.5 % eye drops 07/29 completed Not Available Not Available Not Available prednisone 10 mg tablets in a dose pack Take 1 tab by mouth, 3 times a day for 3 daysTake 1 tab by mouth 2 times a day for 2 daysTake 1 tab by mouth once a day for 1 day 02/22 completed Not Available Not Available Not Available cefadroxil 500 mg capsule 07/30 completed Not Available Not Available Not Available prednisolon e acetate 1 % eye drops,suspe nsion 07/29 completed Not Available Not Available Not Available DOK 100 mg capsule TK 1 C PO BID 02/22 completed Not Available Not Available Not Available Kenalog 10 mg/mL suspension for injection In office injection administe red by the provider 02/22 completed [facility] [place]: [phone] Not Available Not Available Not Available hydrocodone 7.5 mg-acetamin ophen 325 mg tablet take 1 tablet every 3-4 hours prn active Not Available Not Available No t Available cephalexin 500 mg capsule DNC active Not Available Not Available Not Available Baby Aspirin 81 mg chewable tablet Chew 1 tablet every day by oral route. 02/22 completed Not Available Not Available Not Available cefuroxime axetil 500 mg tablet 07/29 completed Not Available Not Available Not Available methylpredn isolone 4 mg tablets in a dose pack Take 1 dose pk by oral route as directed. active Not Available Not Available No t Available celecoxib 100 mg capsule TAKE 1 CAPSULE BY MOUTH TWICE DAILY 2022 active Not Available Not Available Not Avai lable metformin ER 500 mg tablet,exte nded release 24 hr active Not Available Not Available Not Available Hibiclens 4 % topical liquid Direction s: Shower with the body wash the night before surgery and morning of the surgery at home before coming in for surgery. Take extra time to wash carefully the hip, knee or shoulder that will have the surgery. 01/05 completed Not Available Not Available Not Available Boostrix Tdap 2.5 Lf unit-8 mcg-5 Lf/0.5 mL intramuscul ar syringe 07/29 completed Not Available Not Available Not Available multivitami n 2021 active Not Available Not Available Not Avai lable Calcium 600 + D(3) 2021 active Not Available Not Available Not Avai lable ProAir HFA 90 mcg/actuati on aerosol inhaler active Not Available Not Available Not Available gatifloxaci n 0.5 % eye drops active Not Available Not Available Not Available Xarelto 10 mg tablet TK 1 T PO Q 24 H active Not Available Not Available No t Available ropivacaine (PF) 5 mg/mL (0.5 %) injection solution Take 10 mg by injection route. 02/22 completed Not Available Not Available Not Available Vitals Date Recorded Body mass index (BMI) Body height Body weight Provider Name and Address Organization Details Last Updated DateTime 01/05/2022 26.6 kg/m2 172.72 cm 82888.66 g Not Available [facility] 01/10/2023 00:54:12 Date Recorded Body mass index (BMI) Body height Body weight Provider Name and Address Organization Details Last Updated DateTime 02/23/2022 26.6 kg/m2 172.72 cm 35622.66 g Not Available [facility] 01/10/2023 00:54:12 Date Recorded Body mass index (BMI) Body height Body weight Provider Name and Address Organization Details Last Updated DateTime 06/02/2022 27.4 kg/m2 172.72 cm 83184.63 g Not Available [facility] 01/10/2023 00:54:12 Date Recorded Body height Pain severity - 0-10 verbal numeric rating [Score] - Reported Provider Name and Address Organization Details Last Updated DateTime 02/22/2021 172.72 cm 1 Not Available [facility] 00:54:11 Date Recorded Body height Body mass index (BMI) Body weight Provider Name and Address Organization Details Last Updated DateTime 02/22/2023 172.72 cm 27.4 kg/m2 51687.63 g JEN Deshpande [place] [facility] [place] [facility] [employer] [facility] 02/22/2023 10:59:52 Social History Question Answer Notes LastModified by Organizat ion Details LastModified Time Tobacco Smoking Status Former Smoker Not Available [facility] 01/10/2023 00:47:17 What Is Your Level Of Alcohol Consumption? Occasional [id number] Information not available 01/10/2023 When Did You Quit Smoking? 16+yearssincela elinor [email or web address] Information not available 02/22/2023 Sex: Unknown Functional Status None recorded. Mental Status None recorded. Family History Relationship Description Onset Age of this Age Resolved Age Notes LastModified by Organization Details LastModified Time Unspecified Relation Heart disease [id number] Not available 01/10/2023 00:49:01 Unspecified Relation Family history of malignant neoplasm [id number] Not available 01/10/2023 00:49:02 Unspecified Relation Diabetes mellitus [id number] Not available 01/10/2023 00:49:02 Unspecified Relation Cerebrovascu lar accident [email or web address] Not available 11:02:02 Medical History Condition Response ARTHRITIS Y USE OF BLOOD THINNERS Y DIABETES, TYPE Y USE OF NSAIDS Y STROKE/TIA Y Gynecological HistoryNo gynecological history recorded. Obstetrics History GPAL:G 0 P 0 0 0 0 Past Encounters Encounter ID Performer Location Encounter Start Date Encounter Closed Date Diagnosis/Indication Diagnosis SNOMED-CT Code Diagnosis ICD10 Code Diagnosis Note [id number] [facility] [place] [address] [place] [address] 01/25/2021 00:00:00 01/25/2021 15:33:31 [id number] [facility] [place] [address] [place] [address] 02/22/2021 00:00:00 02/22/2021 14:44:15 [id number] [facility] [place] [address] [place] [address] 01/05/2022 00:00:00 01/05/2022 10:00:21 [id number] [facility] [place] [address] [place] [address] 02/23/2022 00:00:00 02/23/2022 11:12:58 [id number] [facility] [place] [address] [place] [address] 06/02/2022 00:00:00 06/02/2022 14:03:12 [id number] Stefan Prasad MD [facility] [place] [address] [place] [address] 02/22/2023 10:43:40 02/22/2023 11:53:45 History of total hip arthroplasty 6281590624 06 Z96.641 RIGHT And LEFT History of artificial joint 813806969 Z96.60 History of bilateral total knee replacement 5736684408 148694 Z96.653 Health Concerns Section Related Observation LastModified by Organization Detai ls LastModified Time None Recorded Concern Status LastModified by Organization Details LastModified Time None Recorded Advance Directives Directive None Recorded Payers Encounter Date Sequence Insurance Name Policy Number Policy Galvez Covered Member ID Galvez Member ID Guarantor Name 02/22/2023 1 [place] Karlee Membrenodinora [id number] Karlee Trejo Samantha 02/22/2023 2 [employer]I (MEDICARE SUPPLEMENT) Karlee Trejo Samantha [id number] Karlee Trejo Samantha Notes Date Note Type Note Provider Name and Address Organization Details Recorded Time 02/22/2021 text/html Hip(s)Reported bypatient.Qualit y:throbbing; deep; worsening Severity:moderat e Timing:chronic; recurrent Alleviating Factors:lying down; heat; ice; rest; exercise Aggravating Factors:walking; bending/squattin g; going from sit to stand Associated Symptoms:no numbness; no tingling; no redness; no ecchymosis; no catching/locking ; no popping/clicking ; no buckling; no instability; no radiation down leg; no drainage; no fever; no chills; no weight loss; no change in bowel/bladder habits;weakness; swelling;grindin g Not Available [employer] 02/22/2021 14:44:15 02/22/2023 text/html Patient returns hip and knee replacements. She has had both knees done about 4 years ago her hips done 2 and 3 years ago. She has a little bit of pain in the right knee but overall seems to be doing fine most of the time and is happy with her knee replacements. Stefan Prasad MD [address] [place] [address], [place], [address], [employer] 02/22/2023 12:18:59 OBGyn Episode No OBEpisode recorded.
--- OUTSIDE RECORDS SUMMARY | 2025-02-20 10:48 | XMS_ITS | Clinical Summary ---
Author Organization [facility] Address [address] [place] [address] Care Team Providers Care Explosive Operator Supervisor Name Role Phone Zana Flynn MD Primary Care Provider [phone] Allergies No known active allergies Medications calcium carbonate-vitam in D3 (Calcium 600 + D,3,) 1500 mg (600 mg elemental) -400 units per tablet Take 1 tablet by mouth daily 2 Active multivit with min-folic acid (Adult One Daily Multivitamin) 0.4 mg tablet Take 1 tablet by mouth daily 3 Active ferrous gluconate (FERGON) 240 mg (27 mg of elemental iron) tablet Take 1 tablet (240 mg total) by mouth daily Active hydrALAZINE (APRESOLINE) 25 mg tablet Take 1 tablet (25 mg total) by mouth 3 (three) times a day 3 Active metFORMIN XR (GLUCOPHAGE XR) 500 mg 24 hr tablet Take 1 tablet (500 mg total) by mouth daily with breakfast 3 Active timolol (TIMOPTIC) 0.5 % ophthalmic solution Administer 1 drop into the left eye 2 (two) times a day 10 mL 2 4 Active dorzolamide (TRUSOPT) 2 % ophthalmic solution Administer 1 drop into the left eye 2 (two) times a day 10 mL 11 4 Active latanoprost (XALATAN) 0.005 % ophthalmic solution Administer 1 drop into the left eye nightly 2.5 mL 3 4 Active Hospital, Clinic, or Other Facility Administered Medication Ordered Dose Route Frequency Start Date End Date Status aflibercept syringe (EYLEA) 2 mg/0.05 mL intraocular syringe 2 mgIndications: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 Last received RINKU in April with improvement in CME and VA. Today persistent CME, patient elects to treat. Assessment & Plan (10/30/2024 11:43 AM FRUIT HARVESTER MACHINE OPERATOR): BRVO with NVI/NVG, s/p sectoral PRP and dCPC with glaucoma. Last received RINKU in April with improvement in CME and VA. Today worsened CME and VA but patient declines RINKU. Assessment & Plan (08/06/2024 2:10 PM CDT): BRVO with NVI/NVG, s/p sectoral PRP and dCPC with glaucoma. Continues to follow with glaucoma. She has had some chronic appearing NVI and so pursued IVFA and still with areas of FIRE SYSTEMS INSPECTOR temporally and is now status post (s/p) fill in panretinal photocoagulation (PRP) on 02/28/24. Mild IRF very stable with worse scan today (likely from dense SPEE). Vision worse as well today on testing. Rechecked IOP today and 11 which appears to be improved from last glaucoma visit but possibly glaucoma also playing a role in vision. For now will hold off on antiVEGF as no significant change. For now, will have her return to retina clinic in about 8-10 weeks and continue f/u with glaucoma as scheduled. RTC 8-10 weeks for DFE OU, OCT mac OU Will have her use ATs at least 4 times a day as well OS Assessment & Plan (06/11/2024 3:33 PM CDT): BRVO with NVI/NVG, s/p sectoral PRP and dCPC with glaucoma. Continues to follow with glaucoma. She has had some chronic appearing NVI and so pursued IVFA and still with areas of FIRE SYSTEMS INSPECTOR temporally and is now status post (s/p) fill in panretinal photocoagulation (PRP) on 02/28/24. Gonio today without NVA. IRF slightly worsened but patient happy with vision. Will monitor for now. RTC 8 weeks for DFE OU, OCT mac OU Assessment & Plan (04/30/2024 11:35 AM CDT): BRVO with NVI/NVG, s/p sectoral PRP Continues to follow with glaucoma. She has had some chronic appearing NVI and so pursued IVFA and still with areas of FIRE SYSTEMS INSPECTOR temporally and is now status post (s/p) fill in panretinal photocoagulation (PRP) on 02/28/24. Today with worsening IRF left eye (OS), recommend injection left eye (OS). Assessment & Plan (02/28/2024 10:19 AM CDT): BRVO with NVI/NVG, s/p sectoral PRP Continues to follow with glaucoma. She has had some chronic appearing NVI and so pursued IVFA and still with areas of FIRE SYSTEMS INSPECTOR temporally. Discussed r/b/a of fill-in PRP versus observation and she is interested in further treatment. Will proceed today RTC 6-8 weeks for DFE OU, OCT mac OU Assessment & Plan (02/13/2024 2:23 PM CDT): BRVO with NVI/NVG, s/p sectoral PRP Continues to follow with glaucoma. She does have some peripupillary NVI today noted on her glaucoma visit 2 months prior too. This may be chronic as well. We discussed pursuing antiVEGF vs PRP. She has had a difficult time previously with both and is hesitant to further treatment as a result. We can plan for IVFA as well OS and if there are further areas to treat of FIRE SYSTEMS INSPECTOR can plan to treat those. Assessment & Plan (09/07/2023 10:37 AM CDT): BRVO with NVI/NVG, s/p sectoral PRP NVI resolved, temporal atrophy with no CME IOP remains elevated, glc managing, added latanoprost per last glc note Continue with glc and NICOLAS, to retina as needed Neovascular glaucoma of left eye, severe stage 0 05/11/2023 Overview (10/29/2024): Hx brimonidine allergy s/p dcpc OS s/p PRP OU Assessment & Plan (02/18/2025 3:57 PM CDT): IOP mildly elevated. Continue current gtt regimen, seeing glaucoma next week. Assessment & Plan (10/30/2024 11:40 AM FRUIT HARVESTER MACHINE OPERATOR): Seeing glaucoma this afternoon. No NVI on exam. Assessment & Plan (10/30/2024 12:46 PM FRUIT HARVESTER MACHINE OPERATOR): here for follow up PDR stable - follows with retina on 3 classes OS goal low/mid teens, at goal contingency - tube shunt (non valved if stable) Assessment & Plan (07/17/2024 3:22 PM CDT): S/p PRP fill in treatment. Following with retina, still with some CME. VA slightly decreased to 20/60 today IOP 17 on 2 classes (stopped latan at last visit) OCT RNFL OD full, OS with polar thinning HVF 24-2 OD full, OS with superior > inferior arcuate Restart latan QHS as IOP likely above goal Continue to follow with retina as scheduled RTC 2-3 months for IOP check Assessment & Plan (03/13/2024 3:10 PM CDT): S/p PRP with fill in treatment on 02/28/24. Doing well. IOP 10 OS on 3 classes. Will discontinue latanoprost given IOP improved (Tmax 40 in 04/2023). Plan Continue dorzolamide BID OS Continue timolol BID OS Discontinue latan qhs OS RTC glaucoma in 3 months for OCT RNFL, HVF 24-2, IOP check Also to f/u with retina as scheduled for DFE OU, OCT mac OU Assessment & Plan (02/13/2024 2:21 PM CDT): Will plan for possible additional PRP as above following IVFA. Continue f/u with glaucoma as well. Assessment & Plan (12/13/2023 2:19 PM FRUIT HARVESTER MACHINE OPERATOR): S/p PRP, has been discharged from retina. Today, patient has trace NVI and NVA. This may be chronic. Will have patient follow-up with retina for possible RINKU or more PRP. Plan Continue dorzolamide BID OS Continue timolol BID OS Continue latan qhs OS RTC glaucoma in 3 months for IOP check RTC retina in 6 weeks for DFEx OU, poss RINKU vs laser Assessment & Plan (09/27/2023 1:40 PM FRUIT HARVESTER MACHINE OPERATOR): Intraocular pressure (IOP) improved after cessation Brim Status post (s/p) panretinal photocoagulation (PRP) 07/25/23 Has follow up with retina scheduled. Plan Cont dorz left eye (OS) Cont timolol BID left eye (OS) Cont latano Can consider tapering off a drop if intraocular pressure (IOP) stable If at goal then RTC glaucoma in 3 months Assessment & Plan (08/23/2023 4:22 PM CDT): Intraocular pressure (IOP) above goal with evidence of brimonidine allergy, + NVI, can have elevated intraocular pressure (IOP) due to brim allergy Status post (s/p) panretinal photocoagulation (PRP) 07/25/23 Has follow up with retina scheduled. Plan Switch brim for dorzolamide BID left eye (OS) only Cont timolol BID left eye (OS) If elevated at next retina appt >15 start latanoprost and RTC glaucoma in 6 weeks If at goal then RTC glaucoma in 3 months Assessment & Plan (07/26/2023 8:26 AM CDT): Intraocular pressure (IOP) controlled, no NVI FA 07/25/23 with FIRE SYSTEMS INSPECTOR more prominent temporally but throughout. R/B/A of PRP OS discussed w/ patient and interested in proceeding. Please refer to procedure note below. Assessment & Plan (06/14/2023 12:55 PM CDT): NVG OS dCPC OS 05/11/23 Doing well intraocular pressure (IOP) 9 OS, 17 post DIRK Complete pred forte (PF) taper this week Stop Diamox Stop latanoprost Cont timolol and Brim BID left eye (OS), given written instructions RTC 8 weeks, no dilation, intraocular pressure (IOP) check Assessment & Plan (06/14/2023 12:33 PM CDT): Here today DIRK left eye (OS). Intraocular pressure (IOP) controlled, no NVI, seeing glaucoma next. RTC 4-6 weeks for likely sectoral panretinal photocoagulation (PRP) left eye (OS) with fluorescein angiography (FA) at [facility] before hand. 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 S/p avastin OS 05/11 and status post (s/p) diode left eye (OS) 05/21/23 with good intraocular pressure (IOP) control today. - Was supposed to have PRP with retina today but still VH, already seen by them. Plan for return on 06/10 to repeat DIRK OS and then 1 month for fluorescein angiography (FA) at [facility] with subsequent sectoral vs 360 panretinal photocoagulation (PRP). 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 Status post (s/p) diode left eye (OS) with good intraocular pressure (IOP) control today. Recent avastin left eye (OS) on 05/11. Initially scheduled for panretinal photocoagulation (PRP) left eye (OS) today, however there is still VH. Will bring back on 06/10 or 2 weeks to [facility] for repeat DIRK left eye (OS), and 1 month after that can schedule for fluorescein angiography (FA) at [facility] with subsequent sectoral vs 360 panretinal photocoagulation (PRP) Assessment & Plan (05/21/2023 2:14 PM CDT): NVG OS dCPC OS today Start PF QID OS Ok to D/C diamox if IOP improved on afternoon Follow 1 week Assessment & Plan (05/18/2023 3:47 PM CDT): Per CareEverywhere, presented to [facility] on 02/12 with blurry vision OS. She was given TPA. 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 IV tPA reversal was given. It is unclear if she received other parts of stroke work- up like neck vessel and heart imaging. She was started on plavix and statin. Patient saw neuro-ophthalmology ([place]) on 03/13. Exam w/ VA 20/30, 20/40. APD OS. DFEx with mild pallor OS. A/P with suspected NAION OS . She last saw [facility] neuro on 04/05. Plavix and statin were continued. She was seen again by [facility] neuro-ophth on 05/07. New VH OS was noted. Thought to be secondary to plavix use. On 05/08, there is a telephone call documented to patient saying that neurology agreed to hold antiplatelet agents for time being. She was referred to [facility] neuro-ophth for further management since Dr. Dale is leaving [facility]. She is planning to continue to follow with [facility] neuro. 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 She received DIRK OS on 05/11. Her IOP has been difficult to control even with diamox. Overall, her story is consistent with likely BRAO OS in February, resulting in NVG OS. She has been referred to glaucoma for consideration of tube vs diode. Today, her IOP is 32 on diamox and three classes. She has pain and tearing which is very bothersome to her. Discussed r/b/a diode OS, she wishes to proceed. PLAN -Continue diamox 500mg BID -Continue brimonidine BID OS -Continue timolol BID OS -Continue latanoprost qhs OS -Keep appt with Retina for PRP on -RTC [facility] clinic with Dr. 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 and microhyphema IOP improved to 16 from 40 after max topical therapy Hx of mild diabetes (metformin and diet controlled) Neovascular glaucoma (NVG) most likely secondary to prior BRAO Plan: - RBA discussed with patient, wishes to proceed with DIRK OS - 1 week glaucoma follow-up - 2 week panretinal photocoagulation clinic for PRP OS - continue following medication - diamox 500 BID - Brimonidine BID OS - Dorzolamide BID OS - Timolol BID OS - Latanoprost at bedtime OS - Instruction provided Encounters Date Type Department Care Team Description 02/18/2025 3:50 PM CDT Office Visit [facility] [address] [place] [phone] 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) (Primary Dx); Neovascular glaucoma of left eye, severe stage 01/26/2025 Telephone [facility] [address] [place] [phone] Marie Quintanilla MD PhD Pre Cert (2024 Pre-Cert/Assistance Program (Inj)) 01/15/2025 Telephone [facility] [address] [place] [phone] Jessenia Lopez COA 12/16/2024 Telephone [facility] [address] [place] [phone] Mallika Yancey MD Reschedule Appointment from Last 3 Months Surgical History Surgery Date Site/Laterality Comments BACK SURGERY HIP SURGERY Bilateral KNEE SURGERY Bilateral Medical History Medical History Date Comments Diabetes mellitus (HCC) Stroke (HCC) Social History Tobacco Use Types Packs/Day Years Used Date Smoking Tobacco: Former Cigarettes Smokeless Tobacco: Never Tobacco Cessation:Counseling Given: Not Answered Comments:Quit tobacco 57 years ago Alcohol Use Standard Drinks/Week Comments Yes 0 (1 standard drink = 0.6 oz pur e alcohol) occasionally Personal Safety Answer Date Recorded Have you ever been in or are you currently in a harmful physical or emotional relationship or is someone making you feel afraid or unsafe? Denies 05/10/2023 Comments Unknown Sex and Gender Information Value Date Recorded Sex Assigned at Not on file Legal Sex Female 6:54 PM FRUIT HARVESTER MACHINE OPERATOR Gender Identity Female 10/24/2024 1:20 PM FRUIT HARVESTER MACHINE OPERATOR Sexual Orientation Not on file Obstetrics History Last Filed Vital Signs Vital Sign Reading Time Taken Comments Blood Pressure 179/73 05/11/2023 4:18 AM CDT Pulse 87 05/11/2023 4:18 AM CDT Temperature 36.6 C (97.9 F) 05/11/2023 4:18 AM CDT Respiratory Rate 18 05/11/2023 4:18 AM CDT Oxygen Saturation 99% 05/11/2023 4:18 AM CDT Inhaled Oxygen Concentration - - Weight 79.4 kg (175 lb) 05/10/2023 10:52 PM CDT Height 172.7 cm (5' 8 ) 05/10/2023 10:52 PM CDT Body Mass Index 26.61 05/10/2023 10:52 PM CDT Plan of Treatment Health Maintenance Due Date Last Done Comments Depression Screening 1940 Fall Risk Assessment 1940 Osteoporosis Screening-Bone Density Scan 1940 Hepatitis B Screening 1958 Zoster Vaccine (1 of 2) 1990 Well Visit 65+ 2005 Covid-19 Vaccine (2023-2 5 season) 2024 08/02/2022, 08/17/2021, 02/01/2021, Additional history exists Influenza Vaccine (Season Ended) 2025 09/01/2022, 08/31/2021, 08/30/2020, Additional history exists DTaP/Tdap/Td Vaccine (2 - Td or Tdap) 09/07/2027 09/07/2017 Pneumococcal vaccine 65+ Completed 09/12/2017, 08/12 Procedures Procedure Name Priority Date/Time Associated Diagnosis Comments INTRAVITREAL INJECTION, PHARMACOLOGIC AGENT - OS - LEFT EYE Routine 02/18/2025 3:56 PM CDT 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 The patient understood, agreed and wished to proceed. Timeout was completed verifying the patient, procedure, laterality and allergies. Anesthesia Subconjunctival anesthesia was used. Anesthetic medications included Lidocaine 2%. The anesthesia lot number is [id number]. The expiration date is 07/13/2025. The manufacture of the medication is [employer]. Intravitreal Injection, Pharmacologic Agent Preparation included 5% betadine to ocular surface. A 30 gauge needle was used. Pharmaceutical Medication: 2 mg aflibercept syringe 2 mg/0.05 mL Route: intravitreal, Site: Left Eye [facility]: [id number], Lot: [id number], Expiration date: 02/10/2026 The medication administered today was not supplied by the patient or insurance. The medication administered today was not a sample. Post-op Post injection exam found visual acuity is at least hand motion. the patient tolerated the procedure. there were no complications during today's treatment. The patient received written and verbal post procedure care education. Post injection medications were not given. The attending physician was present for the entire procedure. Liliana Bernal MD PhD OPHTH CLINIC PROCEDURES Final Result * OCT, Retina - OU - Both Eyes (02/18/2025 3:56 PM CDT) Anatomical Region Laterality Modality Head Optical Coherenc e Tomography Narrative 02/18/2025 3:56 PM CDT Right Eye Quality was good. Left Eye Quality was good. Notes OD - stable vitelliform lesion OS - stable nasal CME Liliana Bernal MD PhD OPHTH TOMOGRAPHY Final Result from Last 3 Months Insurance MEDICARE [employer] MEDICARE [facility] Care Teams Explosive Operator Supervisor Relationship Specialty Start Date End Date Zana Flynn MD PCP - General Family Medicine 05/11/23
--- OUTSIDE RECORDS SUMMARY | 2025-02-20 10:48 | XMS_ITS | Clinical Summary ---
Author Organization [facility] Address [address] [place] [id number] Care Team Providers Care Furnace Caretaker Name Role Phone Zana Flynn MD Primary Care Provider [phone] Allergies No known active allergies Medications No known medications Social History Tobacco Use Types Packs/Day Years Used Date Smoking Tobacco: Former Cigarettes Smokeless Tobacco: Never Tobacco Cessation:Counseling Given: Not Answered Comments:Smoked 7 years and quit 1967 Alcohol Use Standard Drinks/Week Comments Never 0 (1 standard drink = 0.6 oz pur e alcohol) Comments No Sex and Gender Information Value Date Recorded Sex Assigned at Not on file Legal Sex Female 12:49 PM CDT Gender Identity Female 02/02/2023 8:02 AM CDT Sexual Orientation Not on file Last Filed Vital Signs Vital Sign Reading Time Taken Comments Blood Pressure - - Pulse - - Temperature - - Respiratory Rate - - Oxygen Saturation - - Inhaled Oxygen Concentration - - Weight 77.1 kg (170 lb) 03/24/2024 8:31 AM CDT Height 172.7 cm (5' 8 ) 03/24/2024 8:31 AM CDT Body Mass Index 25.85 03/24/2024 8:31 AM CDT Plan of Treatment Health Maintenance Due Date Last Done Comments Zoster Vaccines (1 of 2) 1990 Annual Medicare Wellness Visit 2005 Dexa Scan (General) 2005 RSV Immunization or 60+ Years (1 - 1-dose 75+ series) 2015 COVID-19 Vaccine ( season) 2024 08/02/2022, 08/17/2021, 02/01/2021, Additional history exists DTaP, Tdap and Td Vaccines (2 - Td or Tdap) 09/07/2027 09/07/2017 Pneumococcal Vaccine: 65+ Years Completed 09/12/2017, 08/30/2007 Meningococcal B Vaccine Aged Out No l onger eligible based on patient's age to complete this topic Meningococcal Vaccine Aged Out No andrea demarcus eligible based on patient's age to complete this topic RSV Immunizations Under 20 Months Aged Out No longer eligible based on patient's age to complete this topic Insurance [facility]ARE [facility] Care Teams Furnace Caretaker Relationship Specialty Start Date End Date Zana Flynn MD [address] [address] PCP - General FAMILY PRACTICE 02/07/23
--- OUTSIDE RECORDS SUMMARY | 2025-02-20 10:48 | XMS_ITS | Referral Summary ---
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); Neovascular glaucoma of left eye, severe stage 01/26/2025 Telephone [facility] Ophthalmology [address] [place] [phone] Marie Quintanilla MD PhD Pre Cert (2024 Pre-Cert/Assistance Program (Inj)) 01/15/2025 Telephone [facility] Ophthalmology [address] [place] [phone] Jessenia Lopez COA 12/16/2024 Telephone [facility] Ophthalmology Former[facility] [place] [address] Mallika Yancey MD Reschedule Appointment from Last 3 Months Allergies No known active allergies Medications calcium [...] treat. Assessment & Plan (10/30/2024 11:43 AM MARKETING DEVELOPER): BRVO with NVI/NVG, s/p sectoral PRP and [...] pursued IVFA and still with areas of DIGITAL MARKETING MANAGER temporally and is now status post (s/p) [...] pursued IVFA and still with areas of DIGITAL MARKETING MANAGER temporally and is now status post (s/p) [...] pursued IVFA and still with areas of DIGITAL MARKETING MANAGER temporally and is now status post (s/p) fill in panretinal photocoagulation (PRP) on 02/28/24. Today with worsening IRF left eye (OS), recommend injection left eye (OS). Assessment & Plan (02/28/2024 10:19 AM CDT): BRVO with NVI/NVG, s/p sectoral PRP Continues to follow with glaucoma. She has had some chronic appearing NVI and so pursued IVFA and still with areas of DIGITAL MARKETING MANAGER temporally. Discussed r/b/a of fill-in PRP versus [...] there are further areas to treat of DIGITAL MARKETING MANAGER can plan to treat those. Assessment & [...] week. Assessment & Plan (10/30/2024 11:40 AM MARKETING DEVELOPER): Seeing glaucoma this afternoon. No NVI on exam. Assessment & Plan (10/30/2024 12:46 PM MARKETING DEVELOPER): here for follow up PDR stable - [...] well. Assessment & Plan (12/13/2023 2:19 PM MARKETING DEVELOPER): S/p PRP, has been discharged from retina. [...] laser Assessment & Plan (09/27/2023 1:40 PM MARKETING DEVELOPER): Intraocular pressure (IOP) improved after cessation Brim [...] (IOP) controlled, no NVI FA 07/25/23 with DIGITAL MARKETING MANAGER more prominent temporally but throughout. R/B/A of [...] eye (OS) with fluorescein angiography (FA) at [facility] before hand. Assessment & Plan [...] 1 month for fluorescein angiography (FA) at [facility] with subsequent sectoral vs 360 [...] back on 06/10 or 2 weeks to [facility] for repeat DIRK left eye (OS), and 1 month after that can schedule for fluorescein angiography (FA) at [facility] with subsequent sectoral vs 360 panretinal photocoagulation (PRP) Assessment & Plan (05/21/2023 2:14 PM CDT): NVG OS dCPC OS today Start PF QID OS Ok to D/C diamox if IOP improved on afternoon Follow 1 week Assessment & Plan (05/18/2023 3:47 PM CDT): Per [facility]where, presented to [facility] on 02/12 with blurry vision OS. She [...] on plavix and statin. Patient saw neuro-ophthalmology ([facility]) on 03/13. Exam w/ [facility] 20/30, 20/40. APD OS. DFEx with mild pallor OS. A/P with suspected NAION OS . She last saw [facility] neuro on 04/05. Plavix and statin were continued. She was seen again by [facility] neuro-ophth on 05/07. New VH OS was noted. Thought to be secondary to plavix use. On 05/08, there is a telephone call documented to patient saying that neurology agreed to hold antiplatelet agents for time being. She was referred to [facility] neuro-ophth for further management since Dr. Dale is leaving [facility]. She is planning to continue to follow with [facility] neuro. She presented to [facility] ED on 05/11 w/ NVI, NVD, NVA [...] -Keep appt with Retina for PRP on -[facility] clinic with Dr. Peterson at 1pm [...] Latanoprost at bedtime OS - Instruction provided Social History Tobacco Use Types Packs/Day Years [...] on file Legal Sex Female 6:54 PM MARKETING DEVELOPER Gender Identity Female 10/24/2024 1:20 PM MARKETING DEVELOPER Sexual Orientation Not on file Last Filed [...] 05/10/2023 10:52 PM CDT Plan of Treatment Not on file Procedures Procedure Name Priority Date/Time Associated Diagnosis [...] Lidocaine 2%. The anesthesia lot number is [id number]. The expiration date is 07/13/2025. The manufacture of the medication is [employer]. Intravitreal Injection, Pharmacologic Agent Preparation included 5% betadine to ocular surface. A 30 gauge needle was used. Pharmaceutical Medication: 2 mg aflibercept syringe 2 mg/0.05 mL Route: intravitreal, Site: Left Eye [facility]: [id number], Lot: [id number], Expiration date: 02/10/2026 The medication administered today [...] 3 Months Insurance MEDICARE COMMERCIAL GENERIC MEDICARE [employer] Care Teams M1 Armor Crewman Relationship Specialty Start Date End Date Zana Flynn MD PCP - General Family Medicine 05/11/23
== END 2025-02-20 10:51 | disposition home or self-care (01) ==
PROVIDERS: Emergency Provider Nurse Practitioner; PCP Family Medicine
DX: L50.9 Urticaria, unspecified (principal); S30.861A Insect bite (nonvenomous) of abdominal wall, initial encounter; S80.861A Insect bite (nonvenomous), right lower leg, initial encounter; W57.XXXA Bitten or stung by nonvenomous insect and other nonvenomous arthropods, initial encounter; E11.9 Type 2 diabetes mellitus without complications; Z79.84 Long term (current) use of oral hypoglycemic drugs; E78.2 Mixed hyperlipidemia; M17.0 Bilateral primary osteoarthritis of knee; M16.12 Unilateral primary osteoarthritis, left hip; M51.369 Other intervertebral disc degeneration, lumbar region without mention of lumbar back pain or lower extremity pain; M51.379 Other intervertebral disc degeneration, lumbosacral region without mention of lumbar back pain or lower extremity pain; Z79.82 Long term (current) use of aspirin; Z96.653 Presence of artificial knee joint, bilateral; Z96.643 Presence of artificial hip joint, bilateral; Z87.891 Personal history of nicotine dependence
CPT/HCPCS: 99213; G0463